=== PATIENT | female | born 1960 | race Hispanic/Latino ===

== ENCOUNTER 2022-05-30 11:03 | Emergency (ER) | payer SELFPAY ==
[~2022-05-30] VITALS: Ht 160 cm; Wt 65.5 kg
[2022-05-30] MEDS ORDERED: IBUPROFEN 600 MG TAB PO STA (11:51)
[2022-05-30] MEDS ORDERED: IBUPROFEN 600 MG TAB ONE (12:05)
[2022-05-30] MEDS ORDERED: GUAIFEN-CODEINE5 ML PO (12:20)
[2022-05-30] MEDS ORDERED: IBUPROFEN600 MG PO (12:22)
== END 2022-05-30 12:27 | disposition home or self-care (01) ==
LOC: FSED 11:19
DX: R50.9 Fever, unspecified (principal); J06.9 Acute upper respiratory infection, unspecified; B34.9 Viral infection, unspecified; R05.9 Cough, unspecified
CPT/HCPCS: 83518; 87400; 99283